=== PATIENT | male | born 1955 | race Caucasian/White ===

== ENCOUNTER → 2017-04-20 | Outpatient (CLI) | payer MEDICARE, OTHER ==
[~2017-04-20] MED LIST: 00186-0370-20 IH; CALAN120 MG PO; LODINE PO; MUCINEX1200 MG PO; MULTIPLE VITAMI1 CAP PO; RT ADVAIR HFA 2312 G IH; RT SPIRIVA18 MCG IH; SINGULAIR 110 MG/TAB PO; THEO-DUR 2200 MG/TAB PO; XOPENEX HF0.045 MG/A IH
== END ==
LOC: COL.RAD 09:16
DX: M50.122 Cervical disc disorder at C5-C6 level with radiculopathy (principal); M48.02 Spinal stenosis, cervical region

== ENCOUNTER → 2018-07-13 | Outpatient (CLI) | payer MEDICARE, OTHER | LOC: COL.VAS 08:56 | DX: I27.20 Pulmonary hypertension, unspecified (principal) ==

== ENCOUNTER 2019-09-13 10:26 | Day surgery (SDC) | payer MEDICARE, OTHER ==
[~2019-09-13] VITALS: Ht 180.3 cm; Wt 137.4 kg
[2019-09-13 10:56] VITALS: BP 148/93; PULSE 74; TEMP 97.8
[2019-09-13] MEDS ORDERED: ASPIRIN E.C. 8181 MG PO (11:05)
[2019-09-13] MEDS ORDERED: TYLENOL 325MG325 MG PO (11:06)
[2019-09-13] MEDS ORDERED: CATAPRES-TTS 20.2 M1 TD (11:11)
[2019-09-13] MEDS ORDERED: LIVALO1 MG PO (11:12)
[2019-09-13] MEDS ORDERED: GLUCOPHAGE850 MG/TAB PO (11:13)
[2019-09-13] MEDS ORDERED: VERELAN240 MG PO (11:15)
[2019-09-13] MEDS ORDERED: COZAAR100 MG PO (11:16)
[2019-09-13] MEDS ORDERED: THEO-DUR 3300 MG/TAB PO (11:18)
[2019-09-13] MEDS ORDERED: PROAIR HFA0.09 MG/AC IH (11:19)
[2019-09-13] MEDS ORDERED: UNIPHYL600 MG PO (11:24)
[2019-09-13] MEDS ORDERED: POTASSIUM GLUCONATE PO (11:26)
--- NOTE | 2019-09-13 11:27 | NUR ---
TO RM AT 1030- CALL LIGHT IN REACH AT BEDSIDE.
--- NOTE | 2019-09-13 14:00 | NUR ---
Dr. Morfin at bedside reviewing procedure with pt's spouse.
[2019-09-13 14:15] VITALS: BP 117/72; PULSE 71; TEMP 98.5
--- NOTE | 2019-09-13 14:15 | NUR ---
Pt arrived from Endo room in cart with Endo RN. Received report from L[facility]. Pt during procedure had IV sedation with propofol and utilized Bipap for support. Pt ambulated to chair with assistance from this RN and Endo RN. Pt appeared short of breath (24 respirations/minute), and he responded that he has COPD, and he is 2 hours late to take albuterol inhaler. Pt's spouse brought him his inhaler, and he took 2 puffs. Oxygen saturations WNL and other VSS and WNL. Water brought to pt per request.
[2019-09-13 14:30] VITALS: BP 101/72; PULSE 68
--- NOTE | 2019-09-13 14:30 | NUR ---
Pt sitting in chair and is visibly more comfortable. Pt states that he feels like his breathing feels much easier. VSS. Pt successfully drank 2 glasses of water and ate a blueberry muffin without c/o n/v. Call light within reach.
[2019-09-13 14:45] VITALS: BP 127/76; PULSE 69
--- NOTE | 2019-09-13 14:45 | NUR ---
Pt breathing more comfortably and states that he is ready to go home. Pt meets criteria for discharge. VSS and WNL on RA. Pt denies nausea or pain.
== END 2019-09-13 15:07 | disposition home or self-care (01) ==
LOC: SDCO 10:26
DX: Z12.11 Encounter for screening for malignant neoplasm of colon (principal); K63.5 Polyp of colon; K57.30 Diverticulosis of large intestine without perforation or abscess without bleeding; E11.40 Type 2 diabetes mellitus with diabetic neuropathy, unspecified; Z79.899 Other long term (current) drug therapy; Z96.653 Presence of artificial knee joint, bilateral; E66.01 Morbid (severe) obesity due to excess calories; Z68.42 Body mass index [BMI] 45.0-49.9, adult; Z79.84 Long term (current) use of oral hypoglycemic drugs; J44.9 Chronic obstructive pulmonary disease, unspecified; E78.5 Hyperlipidemia, unspecified; I10 Essential (primary) hypertension; C61 Malignant neoplasm of prostate; M19.019 Primary osteoarthritis, unspecified shoulder; G47.33 Obstructive sleep apnea (adult) (pediatric); F17.220 Nicotine dependence, chewing tobacco, uncomplicated
CPT/HCPCS: J2704; J7030

== ENCOUNTER 2020-05-02 12:46 | Emergency (ER) | payer MEDICARE, OTHER ==
[~2020-05-02] VITALS: Ht 180.3 cm; Wt 143.2 kg
[~2020-05-02 12:46] MED LIST changes: +ASPIRIN E.C. 8181 MG PO; +CATAPRES-TTS 20.2 M1 TD; +COZAAR100 MG PO; +GLUCOPHAGE850 MG/TAB PO; +LIVALO1 MG PO; +POTASSIUM GLUCONATE PO; +PROAIR HFA0.09 MG/AC IH; +THEO-DUR 3300 MG/TAB PO; +TYLENOL 325MG325 MG PO; +UNIPHYL600 MG PO; +VERELAN240 MG PO
[2020-05-02 12:51] VITALS: TEMP 98.8
[2020-05-02 13:44] LABS: BASO # 0.1 (0.0-0.2); BASO % 0.6 % (0.0-2.0); EOS # 0.2 (0.0-0.7); EOS % 1.2 % (0-4.0); GRAN # 10.1 (1.4-6.5); GRAN % 78.2 % (42.2-75.2); HEMATOCRIT 47.6 % (42.0-52.0); LYMPH # 1.5 (1.2-3.4); LYMPH % 11.5 % (20.0-51.0); MEAN CELL VOLUME 90 fl (80.0-100.0); MEAN CORPUSCULAR HEMOGLOBIN 30 pg (27.0-31.0); MEAN CORPUSCULAR HGB CONC 34 g/dl (33.0-37.0); MEAN PLATELET VOLUME 9.5 fl (7.4-10.4); PLATELET COUNT 268 K/mm3 (130-400); RED BLOOD COUNT 5.29 M/mm3 (4.20-5.60); REDCELL DISTRIBUTION WIDTH-CV 13.2 % (11.5-14.5)
[2020-05-02 13:51] LABS: ALANINE AMINOTRANSFERASE 28 U/L (4-49); ALBUMIN 4.6 gm/dL (3.5-5.0); ALKALINE PHOSPHATASE 126 U/L (50-136); ANION GAP 10 mmol/L (7-16); AST,SGOT 28 U/L (15-37); BILIRUBIN,TOTAL 1.1 mg/dL (0.0-1.0); BLOOD UREA NITROGEN 14 mg/dL (9-20); C-REACTIVE PROTEIN 1.1 mg/dL (0.0-0.9); CALCIUM 10.5 mg/dL (8.4-10.2); CARBON DIOXIDE 22 mmol/L (22-30); CHLORIDE 106 mmol/L (98-107); GLUCOSE 102 mg/dL (74-106); POTASSIUM 4.7 mmol/L (3.4-5.0); SODIUM 138 mmol/L (137-145); TOTAL PROTEIN 8.4 gm/dL (6.4-8.2)
[2020-05-02 14:06] LABS: TROPONIN-I < 0.012 ng/mL (0.000-0.035)
[2020-05-02] MEDS ORDERED: PREDNISONE20 MG PO (15:11)
[2020-05-02] MEDS ORDERED: DOXYCYCLINE 10100 MG PO (15:11)
[2020-05-02 16:21] VITALS: BP 146/118; PULSE 82
== END 2020-05-02 16:10 | disposition home or self-care (01) ==
LOC: COL.ER 12:46
PROVIDERS: Physician Assistant
DX: J44.1 Chronic obstructive pulmonary disease with (acute) exacerbation (principal); E11.9 Type 2 diabetes mellitus without complications; I10 Essential (primary) hypertension; F17.220 Nicotine dependence, chewing tobacco, uncomplicated; Z79.82 Long term (current) use of aspirin; Z79.84 Long term (current) use of oral hypoglycemic drugs; Z88.1 Allergy status to other antibiotic agents; Z95.5 Presence of coronary angioplasty implant and graft
CPT/HCPCS: J7512

== ENCOUNTER 2020-07-03 17:03 | Emergency (ER) | payer MEDICARE, OTHER ==
[~2020-07-03] VITALS: Ht 180.3 cm; Wt 131.8 kg
[~2020-07-03 17:03] MED LIST changes: +DOXYCYCLINE 10100 MG PO; +PREDNISONE20 MG PO; +XARELTO STARTER20 MG PO
[2020-07-03 17:10] VITALS: TEMP 97.9
[2020-07-03 17:32] LABS: BASO # 0.1 (0.0-0.2); BASO % 0.6 % (0.0-2.0); EOS # 0.1 (0.0-0.7); GRAN % 80.8 % (42.2-75.2); HEMATOCRIT 45.6 % (42.0-52.0); HEMOGLOBIN 15.5 g/dl (13.5-18.0); LYMPH # 1.3 (1.2-3.4); LYMPH % 10.8 % (20.0-51.0); MEAN CELL VOLUME 90 fl (80.0-100.0); MEAN CORPUSCULAR HEMOGLOBIN 31 pg (27.0-31.0); MEAN CORPUSCULAR HGB CONC 34 g/dl (33.0-37.0); MEAN PLATELET VOLUME 9.2 fl (7.4-10.4); MONO # 0.8 (0.1-0.6); MONO % 6.4 % (1.7-9.3); PLATELET COUNT 255 K/mm3 (130-400); RED BLOOD COUNT 5.06 M/mm3 (4.20-5.60); REDCELL DISTRIBUTION WIDTH-CV 13.4 % (11.5-14.5)
[2020-07-03 17:38] LABS: INR 1.2 (0.8-3.0); PROTHROMBIN TIME 13.9 SECONDS (9.7-12.8)
[2020-07-03 17:41] LABS: PARTIAL THROMBOPLASTIN TIME 40.4 SECONDS (26.0-37.0)
[2020-07-03 17:42] LABS: ARTERIAL BLD GAS O2 SATURATION 95.9 % (92-100); ARTERIAL BLD GAS TCO2 CT 21.2; ARTERIAL BLOOD GAS BASE EXCESS -2.1 (-2-2); ARTERIAL BLOOD GAS HCO3 20.3 meq/L (22-26); ARTERIAL BLOOD GAS PCO2 29.2 mmHg (35-45); ARTERIAL BLOOD GAS PO2 74.8 mmHg (80-100); ARTERIAL BLOOD GAS pH 7.46 (7.35-7.45)
[2020-07-03 17:43] LABS: D-DIMER < 200.00 ng/mLDDu (200-230)
[2020-07-03 17:57] LABS: ALANINE AMINOTRANSFERASE 25 U/L (4-49); ALBUMIN 4.6 gm/dL (3.5-5.0); ALKALINE PHOSPHATASE 95 U/L (50-136); ANION GAP 13 mmol/L (7-16); AST,SGOT 23 U/L (15-37); BILIRUBIN,TOTAL 0.8 mg/dL (0.0-1.0); BLOOD UREA NITROGEN 11 mg/dL (9-20); CALCIUM 10.3 mg/dL (8.4-10.2); CARBON DIOXIDE 22 mmol/L (22-30); CHLORIDE 104 mmol/L (98-107); CREATININE, serum 0.77 (0.66-1.25); GLUCOSE 124 mg/dL (74-106); POTASSIUM 4.1 mmol/L (3.4-5.0); SODIUM 139 mmol/L (137-145); TOTAL PROTEIN 7.8 gm/dL (6.4-8.2)
[2020-07-03 18:16] LABS: TROPONIN-I < 0.012 ng/mL (0.000-0.035)
[2020-07-03] MEDS ORDERED: ALDACTONE 25MG25 M1 PO (18:20)
[2020-07-03] MEDS ORDERED: ELIQUIS 5MG PO (18:21)
[2020-07-03] MEDS ORDERED: PREDNISONE20 MG PO (18:51)
[2020-07-03 19:19] VITALS: BP 137/85; PULSE 88
== END 2020-07-03 19:20 | disposition home or self-care (01) ==
LOC: COL.ER 17:03
PROVIDERS: Family Medicine
DX: J44.1 Chronic obstructive pulmonary disease with (acute) exacerbation (principal); E11.9 Type 2 diabetes mellitus without complications; I10 Essential (primary) hypertension; Z86.711 Personal history of pulmonary embolism; Z88.1 Allergy status to other antibiotic agents; Z79.51 Long term (current) use of inhaled steroids; Z79.82 Long term (current) use of aspirin; Z79.01 Long term (current) use of anticoagulants; Z79.84 Long term (current) use of oral hypoglycemic drugs
CPT/HCPCS: J1100

== ENCOUNTER → 2021-10-12 | Outpatient (CLI) | payer MEDICARE, OTHER ==
[~2021-10-12] MED LIST changes: +ALDACTONE 25MG25 M1 PO; +ELIQUIS 5MG PO
== END ==
LOC: COL.RAD 13:59
DX: Z12.2 Encounter for screening for malignant neoplasm of respiratory organs (principal); J43.9 Emphysema, unspecified; Z87.891 Personal history of nicotine dependence